=== PATIENT | male | born 1950 | race Hispanic/Latino ===

== ENCOUNTER 2017-05-19 17:40 | Emergency (ER) | payer MEDICARE ==
[~2017-05-19 17:40] MED LIST: APIX5TAB PO; ASPI-1197 PO; ATOR20TA65 PO; FURO20TA6 PO; METO-409 PO; VALS320T15 PO
[2017-05-19] MEDS ORDERED: HYDROCODONE/ACETAMINOPHEN 10/325 MG TAB ONE (18:06)
[2017-05-19 18:20] LABS: BASOPHILS % (AUTO) 0.7 % (0.0-5.0); EOSINOPHILS % (AUTO) 1.6 % (0.0-8.0); HEMATOCRIT 42.5 % (42-54); MEAN CORPUSCULAR HEMOGLOBIN 30.3 pg (27.0-33.0); MEAN CORPUSCULAR HGB CONC 34.1 g/dL (32.0-36.0); MEAN CORPUSCULAR VOLUME 88.8 fL (79-99); MONOCYTES % (AUTO) 9.3 % (3.0-13.0); NEUTROPHILS % (AUTO) 66.4 % (40.0-77.0); PLATELET COUNT (AUTO) 173 K/uL (130-400); RED BLOOD CELL COUNT(AUTO) 4.79 MIL/uL (4.50-6.20); WHITE BLOOD COUNT (AUTO) 7.8 K/uL (4.8-10.8)
[2017-05-19 18:34] LABS: CREATININE 1.2 mg/dL (0.5-1.5); POTASSIUM 3.9 mmol/L (3.5-5.1)
[2017-05-19 18:38] LABS: ALBUMIN 3.6 g/dL (3.5-5.0); BILIRUBIN,TOTAL 1.1 mg/dL (0.2-1.0); TOTAL PROTEIN, SERUM 7.7 g/dL (6.0-8.3)
[2017-05-19] MEDS ORDERED: KETOROLAC TROMETHAMINE 30MG/ML ONE (19:09)
== END 2017-05-19 19:45 | disposition home or self-care (01) ==
LOC: EDH 17:40
DX: M25.571 Pain in right ankle and joints of right foot (principal); I48.91 Unspecified atrial fibrillation; I10 Essential (primary) hypertension; I25.10 Atherosclerotic heart disease of native coronary artery without angina pectoris; Z98.890 Other specified postprocedural states
CPT/HCPCS: 36415; 80053; 84550; 85025; 93971; 96372; 99285; J1885

== ENCOUNTER 2020-05-21 19:23 | Inpatient (IN) | payer MEDICARE ==
[~2020-05-21] VITALS: Ht 162.6 cm; Wt 95.2 kg
[~2020-05-21 19:23] MED LIST changes: -VALS320T15 PO; +VALS320T16 PO
[2020-05-21] MEDS ORDERED: ONDANSETRON 4MG INJ ONE (19:51)
[2020-05-21 20:02] LABS: BASOPHILS % (AUTO) 0.3 % (0.0-5.0); EOSINOPHILS % (AUTO) 2.7 % (0.0-8.0); HEMATOCRIT 41.7 % (42-54); LYMPHOCYTES % (AUTO) 10.4 % (21.0-51.0); MEAN CORPUSCULAR HGB CONC 33.1 g/dL (32.0-36.0); MEAN CORPUSCULAR VOLUME 84.6 fL (79-99); MONOCYTES % (AUTO) 5.2 % (3.0-13.0); NEUTROPHILS % (AUTO) 81.1 % (40.0-77.0); PLATELET COUNT (AUTO) 128 K/uL (130-400); RED BLOOD CELL COUNT(AUTO) 4.93 MIL/uL (4.50-6.20); RED CELL DISTRIBUTION WIDTH 15.1 % (11.0-15.5)
[2020-05-21 20:11] LABS: INR 1.03 (0.85-1.15); PROTHROMBIN TIME 11.2 SEC (9.6-11.6)
[2020-05-21 20:14] LABS: CREATININE 1.1 mg/dL (0.5-1.5); POTASSIUM 3.4 mmol/L (3.5-5.1)
[2020-05-21 20:19] LABS: ALBUMIN 3.2 g/dL (3.5-5.0); BILIRUBIN,TOTAL 0.6 mg/dL (0.2-1.0); TOTAL PROTEIN, SERUM 6.9 g/dL (6.0-8.3)
[2020-05-21 20:20] LABS: B-TYPE NATRIURETIC PEPTIDE 390 pg/mL (0-100)
[2020-05-21] MEDS ORDERED: IOHEXOL-350 75 ML VIAL IV ONE (21:43)
[2020-05-22 01:51] LABS: APPEARANCE,URINE Clear (CLEAR); BILIRUBIN,URINE Negative (NEGATIVE); COLOR,URINE Yellow (YELLOW); GLUCOSE, URINE (UA) Negative (NEGATIVE); KETONES,URINE Trace mg/dL (NEGATIVE); LEUKOCYTE ESTERASE ,URINE Small (NEGATIVE); NITRATE,URINE Negative (NEGATIVE); OCCULT BLOOD,URINE Nonhemolyzed Trace (NEGATIVE); PROTEIN,URINE POS 1+ mg/dL (NEGATIVE)
[2020-05-22 01:58] LABS: BACTERIA,URINE Rare /HPF (None Seen); RBC,URINE None Seen /HPF (0-1); SQUAMOUS EPITHELIAL CELL,UR Moderate /HPF (0-2); WBC,URINE 0-1 /HPF (0-1)
[2020-05-22 06:16] LABS: BASOPHILS % (AUTO) 0.4 % (0.0-5.0); EOSINOPHILS % (AUTO) 1.7 % (0.0-8.0); HEMATOCRIT 41.7 % (42-54); MEAN CORPUSCULAR HEMOGLOBIN 27.7 pg (27.0-33.0); MEAN CORPUSCULAR HGB CONC 33.3 g/dL (32.0-36.0); MEAN CORPUSCULAR VOLUME 83.2 fL (79-99); MONOCYTES % (AUTO) 7.5 % (3.0-13.0); PLATELET COUNT (AUTO) 134 K/uL (130-400); RED BLOOD CELL COUNT(AUTO) 5.01 MIL/uL (4.50-6.20); RED CELL DISTRIBUTION WIDTH 15.3 % (11.0-15.5); WHITE BLOOD COUNT (AUTO) 5.5 K/uL (4.8-10.8)
[2020-05-22 06:21] LABS: CARBON DIOXIDE 29 mmol/L (21-32); CHLORIDE 105 mmol/L (101-111); CREATININE 0.9 mg/dL (0.5-1.5); GLOMERULAR FILTR. RATE CALC 89 mL/min (>60); GLUCOSE,RANDOM 106 mg/dL (70-105); POTASSIUM 3.7 mmol/L (3.5-5.1); SODIUM SERUM 140 mmol/L (136-145); UREA NITROGEN, BLOOD 14 mg/dL (7-18)
[2020-05-22 06:34] LABS: CREATINE KINASE, TOTAL 43 U/L (21-232); MYOGLOBIN 31 ng/mL (10-92); TROPONIN I < 0.04 ng/mL (0.00-0.06)
[2020-05-22 06:46] LABS: HEMOGLOBIN A1C 6.1 % (4.0-6.0)
[2020-05-22] MEDS ORDERED: MAGNESIUM CITRATE 296 ML SOLUTION ONE (14:39)
[2020-05-22] MEDS ORDERED: MECLIZINE HCL 25 MG TABLET ONE (14:39)
[2020-05-22] MEDS ORDERED: ACETAMINOPHEN 325 MG TAB ONE (14:56)
[2020-05-22 18:39] VITALS: BP 152/108
[2020-05-22] MEDS ORDERED: CARV25TA PO (19:18)
[2020-05-22] MEDS ORDERED: SACU1TAB4 PO (19:18)
[2020-05-22 20:16] VITALS: BP 154/81
[2020-05-23 00:16] VITALS: BP 161/101
[2020-05-23] MEDS ORDERED: MORPHINE 2 MG SYG ONE (00:17)
[2020-05-23 04:16] VITALS: BP 164/98
[2020-05-23 05:48] LABS: BASOPHILS % (AUTO) 0.8 % (0.0-5.0); EOSINOPHILS % (AUTO) 4.6 % (0.0-8.0); LYMPHOCYTES % (AUTO) 35.9 % (21.0-51.0); MEAN CORPUSCULAR HEMOGLOBIN 26.8 pg (27.0-33.0); MEAN CORPUSCULAR HGB CONC 31.2 g/dL (32.0-36.0); MONOCYTES % (AUTO) 7.3 % (3.0-13.0); NEUTROPHILS % (AUTO) 51.1 % (40.0-77.0); PLATELET COUNT (AUTO) 173 K/uL (130-400); RED CELL DISTRIBUTION WIDTH 15.4 % (11.0-15.5); WHITE BLOOD COUNT (AUTO) 6.5 K/uL (4.8-10.8)
[2020-05-23] MEDS: MORPHINE 2 MG SYG IVP PRN (06:04)
[2020-05-23 06:12] LABS: CREATININE 1.4 mg/dL (0.5-1.5); MAGNESIUM 1.9 mg/dL (1.80-2.40); POTASSIUM 3.9 mmol/L (3.5-5.1)
[2020-05-23 08:00] VITALS: BP 188/114
[2020-05-23] MEDS: APIXABAN 5 MG TABLET PO SCH ×2 (08:03→19:54)
[2020-05-23] MEDS: CARVEDILOL 25 MG TABLET PO SCH ×2 (08:06→19:55)
[2020-05-23] MEDS: ENTRESTO PO SCH ×2 (08:46→19:55)
[2020-05-23] MEDS ORDERED: KETOROLAC 30MG VIAL (30MG/ML) IV SCH (10:45)
[2020-05-23 12:00] VITALS: BP 136/90
[2020-05-23 16:00] VITALS: BP 159/116
[2020-05-23 20:12] VITALS: BP 163/101
[2020-05-24 00:16] VITALS: BP 146/82
[2020-05-24 04:16] VITALS: BP 149/111
[2020-05-24 05:58] LABS: CREATININE 1.2 mg/dL (0.5-1.5); MAGNESIUM 1.8 mg/dL (1.80-2.40); POTASSIUM 4.1 mmol/L (3.5-5.1)
[2020-05-24] MEDS: MORPHINE 2 MG SYG IVP PRN ×2 (06:04→10:27)
[2020-05-24 07:45] VITALS: BP 168/109
[2020-05-24] MEDS: ENTRESTO PO SCH (09:00)
[2020-05-24] MEDS ORDERED: LACTULOSE 20 GM/30 ML UDCUP PO SCH (09:00)
[2020-05-24] MEDS: APIXABAN 5 MG TABLET PO SCH (09:23)
[2020-05-24 09:31] VITALS: BP 168/109
[2020-05-24] MEDS: CARVEDILOL 25 MG TABLET PO SCH (09:31)
[2020-05-24] MEDS ORDERED: CLONIDINE 0.2 MG/ 24 HR PATCH TD SCH (10:15)
== END 2020-05-24 12:00 | disposition left against medical advice (07) | DRG 392 ==
LOC: EDH 19:23 → EDHIP 21:14 → 3BH 05-22 17:22 → EDHIP 05-22 17:57 → 3BH 05-22 18:36
PROVIDERS: ADMIT Internal Medicine Infectious Disease; ATTEND Internal Medicine Infectious Disease
DX: K29.70 Gastritis, unspecified, without bleeding (principal); I50.32 Chronic diastolic (congestive) heart failure; K52.9 Noninfective gastroenteritis and colitis, unspecified; E87.6 Hypokalemia; K59.00 Constipation, unspecified; E86.0 Dehydration; E66.01 Morbid (severe) obesity due to excess calories; E78.5 Hyperlipidemia, unspecified; I11.0 Hypertensive heart disease with heart failure; I25.10 Atherosclerotic heart disease of native coronary artery without angina pectoris; I48.91 Unspecified atrial fibrillation; K57.90 Diverticulosis of intestine, part unspecified, without perforation or abscess without bleeding; K80.20 Calculus of gallbladder without cholecystitis without obstruction; Z68.36 Body mass index [BMI] 36.0-36.9, adult; Z91.19 Patient's noncompliance with other medical treatment and regimen; Z95.0 Presence of cardiac pacemaker; Z95.1 Presence of aortocoronary bypass graft; Z20.822 Contact with and (suspected) exposure to COVID-19
CPT/HCPCS: 36415; 71045; 74177; 76705; 80048; 80053; 81001; 82550; 82948; 83036; 83605; 83690; 83735; 83874; 83880; 84484; 85025; 85610; 85730; 87040; 87426; 93005; G0378; J1885; J2405; Q9967; U0003

== ENCOUNTER 2022-01-09 08:53 | Emergency (ER) | payer MEDICARE ==
[~2022-01-09] VITALS: Ht 167.6 cm; Wt 102.1 kg
[~2022-01-09 08:53] MED LIST changes: -ASPI-1197 PO; -ATOR20TA65 PO; +CARV25TA PO; -FURO20TA6 PO; -METO-409 PO; +SACU1TAB4 PO; -VALS320T16 PO
[2022-01-09 09:11] LABS: BASOPHILS % (AUTO) 0.6 % (0.0-5.0); EOSINOPHILS % (AUTO) 4.6 % (0.0-8.0); LYMPHOCYTES % (AUTO) 23.4 % (21.0-51.0); MEAN CORPUSCULAR HEMOGLOBIN 30.2 pg (27.0-33.0); MEAN CORPUSCULAR HGB CONC 33.6 g/dL (32.0-36.0); MEAN CORPUSCULAR VOLUME 89.9 fL (79-99); MONOCYTES % (AUTO) 11.4 % (3.0-13.0); NEUTROPHILS % (AUTO) 59.8 % (40.0-77.0); PLATELET COUNT (AUTO) 120 K/uL (130-400); RED BLOOD CELL COUNT(AUTO) 5.56 MIL/uL (4.50-6.20); RED CELL DISTRIBUTION WIDTH 13.7 % (11.0-15.5)
[2022-01-09 09:25] LABS: ALBUMIN 3.5 g/dL (3.5-5.0); CREATININE 1.1 mg/dL (0.5-1.5); POTASSIUM 3.8 mmol/L (3.5-5.1); TOTAL PROTEIN, SERUM 7.6 g/dL (6.0-8.3)
[2022-01-09 09:35] LABS: B-TYPE NATRIURETIC PEPTIDE 121 pg/mL (0-100)
[2022-01-09] MEDS ORDERED: IPRATROPIUM/ALBUTEROL SULFATE 3 ML SOLUTION IH STA (10:01)
[2022-01-09] MEDS ORDERED: SOLU-MEDROL 125MG VIAL IVP ONE (10:30)
[2022-01-09] MEDS ORDERED: ALBUTEROL 0.083% 2.5 MG/3 ML INH IH STA ×2 (12:12)
[2022-01-09] MEDS ORDERED: PRED5TAB PO (13:40)
[2022-01-09] MEDS ORDERED: MONT10TA21 PO (13:40)
[2022-01-09 13:55] VITALS: BP 159/78
== END 2022-01-09 13:57 | disposition home or self-care (01) ==
LOC: EDH 08:53 → EDBD 08:53 → EDH 13:57
DX: J44.1 Chronic obstructive pulmonary disease with (acute) exacerbation (principal); I25.10 Atherosclerotic heart disease of native coronary artery without angina pectoris; E78.00 Pure hypercholesterolemia, unspecified; I11.0 Hypertensive heart disease with heart failure; I50.9 Heart failure, unspecified; Z98.890 Other specified postprocedural states; Z79.01 Long term (current) use of anticoagulants; Z79.899 Other long term (current) drug therapy
CPT/HCPCS: 99285; 96374; 71045; 84484; 80053; 83880; 85025; 36415; 93005; 94640 ×3; J2930

== ENCOUNTER 2022-05-26 11:59 | Emergency (ER) | payer MEDICARE ==
[~2022-05-26] VITALS: Ht 167.6 cm; Wt 117.9 kg
[~2022-05-26 11:59] MED LIST changes: +MONT-47 PO; +PRED5TAB PO
[2022-05-26 12:15] VITALS: BP 150/89
[2022-05-26] MEDS ORDERED: AMOX500C2 PO (12:15)
[2022-05-26] MEDS ORDERED: IBUP-2070 PO (12:15)
[2022-05-26] MEDS ORDERED: ACET-66 PO (12:15)
== END 2022-05-26 12:27 | disposition home or self-care (01) ==
LOC: EDH 11:59
DX: K04.7 Periapical abscess without sinus (principal); E78.00 Pure hypercholesterolemia, unspecified; I11.0 Hypertensive heart disease with heart failure; I25.10 Atherosclerotic heart disease of native coronary artery without angina pectoris; Z79.01 Long term (current) use of anticoagulants; Z79.1 Long term (current) use of non-steroidal anti-inflammatories (NSAID); Z79.52 Long term (current) use of systemic steroids; Z79.899 Other long term (current) drug therapy; Z95.1 Presence of aortocoronary bypass graft; Z95.810 Presence of automatic (implantable) cardiac defibrillator

== ENCOUNTER → 2022-11-29 | Outpatient (CLI) | payer MEDICARE ==
[~2022-11-29] MED LIST changes: +ACET-66 PO; +AMOX500C2 PO; +IBUP-2070 PO; +IOHEXOL-350 75 ML VIAL IV ONE
== END | disposition home or self-care (01) ==
LOC: RAH 10:15
PROVIDERS: ATTEND Internal Medicine Gastroenterology
DX: R16.0 Hepatomegaly, not elsewhere classified (principal); R10.31 Right lower quadrant pain; R19.7 Diarrhea, unspecified; R10.10 Upper abdominal pain, unspecified; K80.20 Calculus of gallbladder without cholecystitis without obstruction; M47.815 Spondylosis without myelopathy or radiculopathy, thoracolumbar region; K57.90 Diverticulosis of intestine, part unspecified, without perforation or abscess without bleeding; I70.0 Atherosclerosis of aorta; N40.0 Benign prostatic hyperplasia without lower urinary tract symptoms
CPT/HCPCS: 74178; Q9967